=== PATIENT | male | born 1945 | race Caucasian/White ===

== ENCOUNTER 2018-09-06 09:48 | Emergency (ER) | payer OTHER, MEDICARE ==
[~2018-09-06] VITALS: Ht 165.1 cm; Wt 54.4 kg
--- NOTE | 2018-09-06 09:49 | NUR ---
PT TO BED 3 VIA WHEELCHAIR
--- NOTE | 2018-09-06 09:50 | NUR ---
72y/m bib caregiver via wheel chair with c/o aloc, lethargic, unable to talk, does follow commands upon arrival; had diaarhea this morning. pt is aaox2, vss at this time, pt is on 2 liters of 02 sat at 95% at this time, bed down, bedrail up x 1. temp 101.4, given tyelnol per protocol per md. er md aware and notified of pt status. hx; copd, heart surgery rx; budisonide, albuterol, mylan
--- NOTE | 2018-09-06 09:52 | NUR ---
Patient being evaluated by physician at bedside.
[2018-09-06 09:55] VITALS: BP 74/44
--- NOTE | 2018-09-06 09:58 | NUR ---
PT TAKEN TO CT VIA HARIS
--- NOTE | 2018-09-06 09:58 | NUR ---
PT TAKEN TO CT SCAN AT THIS TIME VIA GURCHUCKY ACCOPANIED BY DANIELLE SEBASTIAN AND DANIELLE JUAREZ
[2018-09-06] MEDS ORDERED: OCTREOTIDE ACETATE 100 MCG/ML VIAL IV SCH ×2 (10:05→10:25)
[2018-09-06] MEDS ORDERED: PIPERACILLIN/TAZOBACTAM 4.5 GM in DEXTROSE 5% 100 ML IV ONE (10:05)
[2018-09-06] MEDS ORDERED: NACL 0.9% 1,000 ML IV ONE ×2 (10:05→12:05)
[2018-09-06] MEDS ORDERED: PANTOPRAZOLE 40 MG INJ VIAL IVP ONE (10:05)
[2018-09-06] MEDS ORDERED: NACL 0.9% 1,000 ML IV SCH (10:05)
[2018-09-06] MEDS ORDERED: PIPERACILLIN/TAZOBACTAM 2.25 GM VIAL IV ONE (10:18)
[2018-09-06 10:49] LABS: BASOPHILS % (AUTO) 0.1 % (0.0-2.0); EOSINOPHILS % (AUTO) 0.1 % (0.0-4.0); HEMATOCRIT 43.6 % (36-52); HEMOGLOBIN 13.9 g/dL (12.0-18.0); LYMPHOCYTES # (AUTO) 0.7 K/uL (2.0-11.5); LYMPHOCYTES % (AUTO) 8.9 % (20.5-51.1); MEAN CORPUSCULAR HEMOGLOBIN 28 pg (27-31); MEAN CORPUSCULAR HGB CONC 32 g/dL (33-37); MEAN CORPUSCULAR VOLUME 87.2 fL (80-94); MONOCYTES # (AUTO) 0.1 K/uL (0.8-1.0); MONOCYTES % (AUTO) 1.3 % (1.7-9.3); NEUTROPHILS # (AUTO) 6.5 K/uL (1.8-7.7); NEUTROPHILS % (AUTO) 89.6 % (42.2-75.2); PLATELET COUNT (AUTO) 266 K/uL (140-450); RED CELL DISTRIBUTION WIDTH 15.2 % (11.6-13.7); WHITE BLOOD COUNT (AUTO) 7.3 K/uL (4.8-10.8)
[2018-09-06] MEDS ORDERED: ASPIRIN 600 MG SUPP RC ONE (10:50)
[2018-09-06] MEDS ORDERED: ACETAMINOPHEN 325 MG SUPP RC ONE (10:51)
[2018-09-06 10:59] LABS: ANION GAP 17.2 (8-16); CARBON DIOXIDE 25.2 mmol/L (21-32); CHLORIDE 107 mmol/L (98-107); CREATININE 1.6 mg/dL (0.7-1.3); GLUCOSE 141 mg/dL (74-106); POTASSIUM 3.4 mmol/L (3.5-5.1); SODIUM SERUM 146 mmol/L (136-145); UREA NITROGEN, BLOOD 24 mg/dL (7-18)
--- NOTE | 2018-09-06 11:00 | NUR ---
BROTHER OF PATIENT/CAREGIVER STATED THAT PATIENT CATHETERIZE HIMSELF THRU THE SUPRAPUBIC STOMA, NO CATHETER ON THE STOMA. REASSED THE STOMA. STATED NOT TO STICK ANY CATHETER ON THE STOMA TO OBTAIN URINE. Addendum: 09/06/18 at 1233 by [email or web address] Amendment undone in EDM - 09/06/18 at 1238 by HARLEEN BROTHER OF PATIENT/CAREGIVER STATED THAT PATIENT CATHETERIZE HIMSELF THRU THE STOMA, NO CATHETER ON THE STOMA. REASSED THE STOMA. STATED NOT TO STICK ANY CATHETER ON THE STOMA TO OBTAIN URINE. Addendum: 09/06/18 at 1233 by MEDDES BROTHER OF PATIENT/CAREGIVER STATED THAT PATIENT CATHETERIZE HIMSELF THRU THE RT.DIVERTING UROSTOMY WITH BLADDER POUCH STOMA, NO CATHETER ON THE STOMA. REASSED THE STOMA. STATED NOT TO STICK ANY CATHETER ON THE STOMA TO OBTAIN URINE.
[2018-09-06] MEDS ORDERED: ACETAMINOPHEN 650 MG SUPP RC ONE (11:05)
--- NOTE | 2018-09-06 11:09 | NUR ---
no urine, dr rivers notified and aware
[2018-09-06 11:15] LABS: ALBUMIN 3.3 g/dL (3.4-5.0); ASPARTATE AMINOTRANSFERASE 15 U/L (15-37); MAGNESIUM 1.5 mg/dL (1.8-2.4); TOTAL BILIRUBIN 0.7 mg/dL (0.0-1.0)
[2018-09-06 11:16] LABS: LIPASE 106 U/L (73-393); THYROID STIMULATING HORMONE 2.37 uIU/mL (0.34-3.74)
--- NOTE | 2018-09-06 11:30 | NUR ---
dr rivers trying to contact surgeon for pt
[2018-09-06 11:34] LABS: BILIRUBIN,DIRECT 0.3 mg/dL (0.0-0.3)
--- NOTE | 2018-09-06 12:09 | NUR ---
dr. ramirez is here examining pt at this time
[2018-09-06] MEDS ORDERED: BUPIVACAINE-MPF/EPI 0.25% 30 ML VIAL INJ ONE (12:36)
[2018-09-06] MEDS ORDERED: GENTAMICIN 80 MG/2 ML VIAL ONE (12:36)
--- NOTE | 2018-09-06 13:30 | NUR ---
call dr. [facility] but he is out to [place] at this time, will call back again
--- NOTE | 2018-09-06 13:30 | NUR ---
Patient appears to be resting comfortably in bed. Vital Signs within normal limits. Respirations even and unlabored.
--- NOTE | 2018-09-06 14:46 | NUR ---
elvin paged , waiting to call back
--- NOTE | 2018-09-06 16:00 | NUR ---
Patient appears to be resting comfortably in bed. Vital Signs within normal limits. Respirations even and unlabored.
--- NOTE | 2018-09-06 17:31 | NUR ---
WAITING ON ACCEPTING HOSPITAL FOR HIGHER LEVEL OF CARE
--- NOTE | 2018-09-06 18:46 | NUR ---
SPOKE TO PAMELA SANTOS AND TO CALL BACK AFTER 1914 TO GIVE REPORT, DIRECT PHONE NIUMBER
--- NOTE | 2018-09-06 19:27 | NUR ---
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
--- NOTE | 2018-09-06 19:29 | NUR ---
Patient to be transferred to [facility]. Is being transferred due to CONTINUATION OF CARE. Receiving facility has accepting physician and available space. ER physician has signed transfer form. Patient or responsible green party has agreed to transfer and signed form. Patient belongings inventoried and will be sent with patient. Copy of nursing notes, lab reports, EKG, Physicians Orders and X-rays to be sent with patient. DANIELLE SEBASTIAN called REPORT to at receiving facility. [facility] ambulance service has been called for transfer. ETA is 30MIN.
--- NOTE | 2018-09-06 19:29 | NUR ---
PT LAYING IN BED , ANSWERING QUESTIONS APPROPRIATELY, VSS, AWAITNG TRANSFER.
--- NOTE | 2018-09-06 20:13 | NUR ---
[facility] FOR TRANSFER OF PT AT THIS TIME. PT STABLE AND AWAKE
[2018-09-06 20:14] VITALS: BP 105/76
== END 2018-09-06 20:13 | disposition short-term general hospital (02) ==
LOC: MED 09:48 → EDBEDREQSVC 12:11 → MED 20:13
DX: A41.9 Sepsis, unspecified organism (principal); R65.21 Severe sepsis with septic shock; K92.2 Gastrointestinal hemorrhage, unspecified; K63.1 Perforation of intestine (nontraumatic); Z85.51 Personal history of malignant neoplasm of bladder
CPT/HCPCS: 36415; 70450; 71045; 74176; 80053; 82140; 82247; 82248; 82550; 82948; 83605; 83690; 83735; 84443; 84484; 85025; 85610; 85730; 86886; 86900; 86901; 87040; 96361; 96365; 96375; 99291; 99292; C9113; J2354; J2543; Q0092; J1580; J3490; J7030